=== PATIENT | male | born 1975 | race Caucasian/White ===

== ENCOUNTER 2018-01-31 19:47 | Inpatient (IN) | payer MEDICAID ==
[~2018-01-31] VITALS: Ht 180.3 cm; Wt 74.4 kg
[2018-01-31] MEDS ORDERED: SODIUM CHLORIDE 0.9% 1,000 ML IV ONE ×2 (20:21→22:35)
[2018-01-31 21:30] LABS: HEMATOCRIT. 59.4 % (42.0-52.0); HEMOGLOBIN. 19.8 g/dL (14.0-18.0); MEAN CORPUSCULAR HEMOGLOBIN 28.9 pg (28.0-32.0); MEAN CORPUSCULAR VOLUME 86.6 fL (80.0-94.0); PLATELET 320 x1000/uL (130-400); RED BLOOD CELL COUNT 6.86 mill/uL (4.7-6.1)
[2018-01-31] MEDS ORDERED: ONDANSETRON HCL 4MG/2ML VIAL IV ONE (21:30)
[2018-01-31 21:36] LABS: CHLORIDE 104 mEq/L (98-107)
[2018-01-31 21:40] LABS: ETHANOL BLOOD < 10 mg/dL
[2018-01-31 21:45] LABS: CREATINE KINASE 272 IU/L (39-308); D-DIMER 0.22 mg/L FEU (<0.50); INR 1.2; PARTIAL THROMBOPLASTIN TIME 22.9 sec (23.4-31.0); PROTHROMBIN TIME 11.8 sec (9.1-11.1)
[2018-01-31] MEDS ORDERED: LEVOFLOXACIN 750MG PREMIX 150 ML IV ONE (22:00)
[2018-01-31] MEDS ORDERED: VANCOMYCIN 1 G PREMIX 200 ML IV ONE (22:00)
[2018-01-31 22:29] LABS: PLATELET ESTIMATE NORMAL
[2018-01-31] MEDS ORDERED: LORAZEPAM 2MG/ML CPJ IV ONE (22:45)
[2018-02-01 01:10] VITALS: BP 119/70
[2018-02-01 01:30] LABS: *AMPHETAMINES SCREEN URINE NEGATIVE (NEGATIVE); *BARBITURATES SCREEN URINE NEGATIVE (NEGATIVE); *BENZODIAZEPINES SCREEN URINE NEGATIVE (NEGATIVE); *COCAINE SCREEN URINE NEGATIVE (NEGATIVE); METHADONE URINE SCREEN NEGATIVE (NEGATIVE)
[2018-02-01 01:31] LABS: CANNABINOID URINE SCREEN NEGATIVE (NEGATIVE); OPIATES URINE SCREEN NEGATIVE (NEGATIVE); PHENCYCLIDINE URINE SCREEN NEGATIVE (NEGATIVE)
[2018-02-01 04:00] VITALS: BP 140/77
[2018-02-01 04:02] VITALS: BP 140/77
[2018-02-01] MEDS ORDERED: PIPERACILLIN/TAZ 3.375G PREMIX 50 ML IV SCH (07:30)
[2018-02-01] MEDS ORDERED: LORAZEPAM 0.5MG TABLET PO PRN (07:30)
[2018-02-01] MEDS ORDERED: IPRATROPIUM/ALBUTEROL 0.5-3(2.5)MG/3ML NEB INH PRN (07:30)
[2018-02-01] MEDS ORDERED: DOCUSATE SODIUM 100MG CAPSULE PO PRN (07:30)
[2018-02-01] MEDS ORDERED: MAGNESIUM/ALUMINUM HYDROXIDE/SIMETHICONE 30ML UDC PO PRN (07:30)
[2018-02-01] MEDS ORDERED: ACETAMINOPHEN 325MG TABLET PO PRN (07:30)
[2018-02-01] MEDS ORDERED: CLONIDINE 0.1MG TABLET PO PRN (07:30)
[2018-02-01] MEDS ORDERED: ONDANSETRON HCL 4MG/2ML VIAL IV PRN (07:30)
[2018-02-01] MEDS ORDERED: ENOXAPARIN 40MG/0.4ML SYR SUBCUT SCH (07:30)
[2018-02-01 08:00] VITALS: BP 143/79
[2018-02-01] MEDS ORDERED: VANCOMYCIN 1 G PREMIX 200 ML IV NR (09:30)
[2018-02-01 12:00] VITALS: BP 157/92
[2018-02-01] MEDS: ENOXAPARIN 30MG/0.3ML SYR SUBCUT SCH ×2 (12:08→20:42)
[2018-02-01] MEDS ORDERED: VANCOMYCIN 1500MG in DEXTROSE 5% WATER 250ML IV SCH (15:00)
[2018-02-01] MEDS: SODIUM CHLORIDE 0.9% 1,000 ML IV SCH ×2 (15:34→20:36)
[2018-02-01] MEDS: AMLODIPINE 5MG TABLET PO SCH ×2 (15:39→20:41)
[2018-02-01 17:13] LABS: HEMATOCRIT 52.5 % (42.0-52.0); HEMOGLOBIN 17.7 g/dL (14.0-18.0); MEAN CORPUSCULAR VOLUME 86.2 fL (80.0-94.0); PLATELET 267 x1000/uL (130-400); RED CELL DISTRIBUTION WIDTH 15.8 % (11.6-14.6)
[2018-02-01 17:23] LABS: CHLORIDE 104 mEq/L (98-107)
[2018-02-01 17:35] LABS: CREATINE KINASE 140 IU/L (39-308)
[2018-02-01 17:37] LABS: CREATINE KINASE MB FRACTION 1.8 ng/mL (0.5-3.6)
[2018-02-01 17:53] LABS: HEPATITIS B SURFACE ANTIGEN NEGATIVE
[2018-02-01 18:21] LABS: HEPATITIS B CORE AB IGM NEGATIVE
[2018-02-01 18:23] LABS: HEPATITIS A AB IGM NEGATIVE (NEGATIVE)
[2018-02-01 20:00] VITALS: BP 128/70
[2018-02-01] MEDS ORDERED: LEVOFLOXACIN 500MG PREMIX 100 ML IV SCH (21:00)
[2018-02-01 23:54] LABS: CREATINE KINASE 130 IU/L (39-308)
[2018-02-01 23:55] LABS: CREATINE KINASE MB FRACTION 1.5 ng/mL (0.5-3.6)
[2018-02-02] VITALS: BP 133/66
[2018-02-02] MEDS: HYDROCODONE/ACETAMINOPHEN 5/325MG TABLET PO PRN ×2 (00:10→09:21)
[2018-02-02 04:00] VITALS: BP 147/80
[2018-02-02 08:00] VITALS: BP 149/101
[2018-02-02] MEDS: ENOXAPARIN 30MG/0.3ML SYR SUBCUT SCH (08:15)
[2018-02-02] MEDS: AMLODIPINE 5MG TABLET PO SCH (09:21)
[2018-02-02] MEDS ORDERED: VANCOMYCIN 1 G PREMIX 200 ML IV SCH (10:00)
[2018-02-02 12:00] VITALS: BP 143/84
[2018-02-02] MEDS ORDERED: LOSA25TA12 MT (13:04)
[2018-02-02] MEDS ORDERED: AMLO5TAB88 PO (13:04)
[2018-02-02] MEDS ORDERED: ENOXAPARIN 40MG/0.4ML SYR SUBCUT SCH (15:00)
[2018-02-02 15:55] VITALS: BP 143/84
== END 2018-02-02 18:33 | disposition home or self-care (01) | DRG 203 ==
LOC: ER 19:47 → 6WST 22:16 → ENRESERV 22:21 → EDBEDREQ 22:23 → EDBEDREQTM 22:23 → 6WST 02-01 00:58
PROVIDERS: ADMIT Internal Medicine; ATTEND Internal Medicine
DX: M94.0 Chondrocostal junction syndrome [Tietze] (principal); N17.0 Acute kidney failure with tubular necrosis; R65.10 Systemic inflammatory response syndrome (SIRS) of non-infectious origin without acute organ dysfunction; E86.0 Dehydration; Z79.899 Other long term (current) drug therapy; R74.0 Nonspecific elevation of levels of transaminase and lactic acid dehydrogenase [LDH]; I10 Essential (primary) hypertension; E66.9 Obesity, unspecified; Z88.0 Allergy status to penicillin; Z68.22 Body mass index [BMI] 22.0-22.9, adult
CPT/HCPCS: 36415; 71045; 80048; 80053; 80305; 82550; 82553; 83605; 83735; 83880; 84145; 84484; 85025; 85027; 85379; 85610; 85730; 86705; 86709; 86803; 87040; 87086; 87340; 93005; 93306; 93970; 96361; 96365; 96367; 96375; 99285; G0482; J1650; J1956; J2060; J2405; J3370; J7030; J7050; J7060

== ENCOUNTER 2019-11-18 16:16 | Emergency (ER) | payer MEDICAID ==
[~2019-11-18] VITALS: Ht 180.3 cm; Wt 124.0 kg
[~2019-11-18 16:16] MED LIST: AMLO5TAB88 PO; LOSA25TA26 MT
[2019-11-18 16:20] VITALS: BP 171/106
== END 2019-11-18 18:08 | disposition left against medical advice (07) ==
LOC: ER 16:16
DX: Z53.21 Procedure and treatment not carried out due to patient leaving prior to being seen by health care provider (principal); Z88.0 Allergy status to penicillin; Z88.8 Allergy status to other drugs, medicaments and biological substances